=== PATIENT | male | born 1965 | race Caucasian/White ===

== ENCOUNTER 2017-08-25 10:31 | Outpatient (CLI) | payer BC ==
--- NOTE | 2017-08-25 17:17 | Diagnostic Imaging Report ---
Indication: 52-year-old male outpatient with left-sided weakness Technique: sagittal T1 fast spin echo, axial T1 and T2 FLAIR PROPELLER, axial T2 FS PROPELLER, T2* GRE, axial diffusion weighted images, post contrast axial and coronal T1 FLAIR PROPELLER images. ADC and exponential ADC maps generated Comparison: None Findings: . No abnormal areas of restricted diffusion to suggest acute infarction. No acute hemorrhage or edema. No mass effect nor midline shift. No abnormal contrast enhancement. Normal size ventricles and extra axial CSF spaces. Visualized orbits and sinuses are unremarkable. . Impression: Negative
--- NOTE | 2017-08-25 17:21 | Diagnostic Imaging Report ---
Indications: Left-sided weakness Technique: 3D [id number] images obtained through the [place] [facility]. MIP reconstructions were generated in multiple rotational projections Comparison: Reference made to MRI brain of the same day Findings: Dominant right, smaller left vertebral artery, both otherwise patent and nonstenotic with patent branches. Patent nonstenotic basilar artery and proximal branches. Patent nonstenotic left T1 segment. Absent right P1 segment with origin of the right posterior cerebral artery. Is patent left posterior communicating artery. Patent nonstenotic distal bilateral internal carotid arteries. Patent nonstenotic bilateral A1 segments and proximal anterior cerebral arteries. Patent anterior commuting artery. This is visible on the source images but not the reconstructed images. Patent nonstenotic bilateral M1 segments and proximal branches. No evidence of aneurysm or vascular malformation. Impression: Negative for evidence of significant intracranial cerebrovascular insufficiency. Negative for MRI evidence of aneurysm or vascular malformation
--- NOTE | 2017-08-25 17:37 | Cardiology Report ---
APPROVED REPORT EXAM: Two-dimensional and M-mode echocardiogram with Doppler and color Doppler. INDICATION CVA/TIA M-Mode DIMENSIONS IVSd1.2 (0.7-1.1cm)Left Atrium (MM)1.7 (1.6-4.0cm) LVDd4.7 (3.5-5.6cm)Aortic Root3.6 (2.0-3.7cm) PWd1.4 (0.7-1.1cm)Aortic Cusp Exc.2.0 (1.5-2.0cm) LVDs3.3 (2.5-4.0cm) PWs2.0 cm Normal left ventricular chamber size, systolic function and wall motion. Left ventricular ejection fraction estimated to be 55-60 %. No evidence of left ventricular hypertrophy. Anterior Echo-free space, may be due to pericardial fat or effusion. All other cardiac chamber sizes are within normal limits. Focal aortic valve sclerosis with adequate cusp excursion. Thickened mitral valve leaflets with normal excursion. Mitral annulus and aortic root calcification. Normal pulmonic valve structure. Normal tricuspid valve structure. IVC at normal size with physiologic collapse. A color flow and spectral Doppler study was performed and revealed: No aortic regurgitation. Trace mitral regurgitation. Mitral inflow indicates normal left ventricular diastolic function. Trace tricuspid regurgitation. Tricuspid systolic velocities suggests peak right ventricular systolic pressure of 13 mmHg. No pulmonic regurgitation present.
== END 2017-08-25 12:31 | disposition home or self-care (01) ==
LOC: CAR 10:31
DX: R53.1 Weakness (principal)
CPT/HCPCS: 70544; 70553; 93306; A9585